=== PATIENT | male | born 1985 | race Caucasian/White ===

== ENCOUNTER 2019-03-13 12:28 | Inpatient (IN) | payer OTHER ==
[~2019-03-13] VITALS: Ht 177.8 cm; Wt 102.1 kg
[2019-03-13 12:28] VITALS: Ht 177.8 cm; Wt 102.1 kg
[2019-03-13 13:12] LABS: BASOPHIL % 0.4 % (0-2); PLATELET COUNT 278 x10^3mcL (130-400); RED CELL DISTRIBUTION WIDTH 13.4 % (11.5-14.5)
[2019-03-13 13:18] LABS: CALCIUM 9.3 mg/dL (8.5-10.1); CARBON DIOXIDE 26.7 mmol/L (21-32); CHLORIDE SERUM 103 mmol/L (98-107); GFR1 > 60 mL/min; GLUCOSE SERUM 119 mg/dL (74-106); POTASSIUM SERUM 3.7 mmol/L (3.5-5.1); SODIUM SERUM 139 mmol/L (136-145)
[2019-03-13 13:22] LABS: ALBUMIN 3.9 g/dL (3.4-5.0); ALKALINE PHOSPHATASE 65 U/L (46-116); ALT/SGPT 42 U/L (16-63); AMYLASE 72 U/L (25-115); AST/SGOT 20 U/L (15-37); LIPASE 323 IU/L (73-393); TOTAL PROTEIN, SERUM 8.2 g/dL (6.4-8.2)
[2019-03-13 15:44] LABS: MAGNESIUM 1.9 mg/dL (1.8-2.4); PHOSPHOROUS 1.2 mg/dL (2.5-4.9)
[2019-03-13 16:11] VITALS: BP 144/84
[2019-03-13 22:15] VITALS: BP 123/68
[2019-03-14 05:53] VITALS: BP 156/53
[2019-03-14 06:18] LABS: BASOPHIL % 0.1 % (0-2); PLATELET COUNT 237 x10^3mcL (130-400); RED CELL DISTRIBUTION WIDTH 13.6 % (11.5-14.5)
[2019-03-14 07:09] LABS: CALCIUM 8.7 mg/dL (8.5-10.1); CARBON DIOXIDE 25.8 mmol/L (21-32); CHLORIDE SERUM 104 mmol/L (98-107); CREATININE SERUM 0.9 mg/dL (0.7-1.3); GFR1 > 60 mL/min; GLUCOSE SERUM 123 mg/dL (74-106); PHOSPHOROUS 4.2 mg/dL (2.5-4.9); POTASSIUM SERUM 4.4 mmol/L (3.5-5.1); SODIUM SERUM 138 mmol/L (136-145)
[2019-03-14 10:20] VITALS: BP 99/61
[2019-03-14 11:35] LABS: UA SPECIFIC GRAVITY >=1.030 (1.005-1.035); microscopic required? YES; urine erythrocyte NEGATIVE (NEGATIVE)
[2019-03-14 14:47] VITALS: BP 99/61
[2019-03-14 15:30] LABS: AMPHETAMINE QUAL UR POSITIVE (See below)
== END 2019-03-14 17:35 | disposition home or self-care (01) | DRG 234 ==
LOC: ED 12:28 → MU 15:00
PROVIDERS: Emergency Medicine; Surgery; ADMIT Internal Medicine
PROC: 0DTJ4ZZ Resection of Appendix, Percutaneous Endoscopic Approach (ICD-10-PCS; principal; 2019-03-13 19:00)
DX: K35.80 Unspecified acute appendicitis (principal); N17.0 Acute kidney failure with tubular necrosis; F12.10 Cannabis abuse, uncomplicated; E83.39 Other disorders of phosphorus metabolism; R80.9 Proteinuria, unspecified; F17.210 Nicotine dependence, cigarettes, uncomplicated; Z68.32 Body mass index [BMI] 32.0-32.9, adult
CPT/HCPCS: J0694; J0696; J1170; J1885; J3010; J3490; Q0092

== ENCOUNTER 2019-04-01 18:38 | Emergency (ER) | payer OTHER ==
[~2019-04-01] VITALS: Ht 177.8 cm; Wt 98.0 kg
[2019-04-01 18:59] VITALS: Ht 177.8 cm; Wt 98.0 kg
[2019-04-01 20:46] VITALS: BP 132/80
== END 2019-04-01 20:46 | disposition home or self-care (01) ==
LOC: ED 18:38
DX: Z48.01 Encounter for change or removal of surgical wound dressing (principal); Z90.89 Acquired absence of other organs